=== PATIENT | male | born 1950 | race Caucasian/White ===

== ENCOUNTER 2023-08-23 17:53 | Emergency (ER) | payer MEDICARE, OTHER ==
[~2023-08-23] VITALS: Ht 177.8 cm; Wt 113.4 kg
--- NOTE | 2023-08-23 18:12 | ED Neurological Problem ---
General Stated Complaint: FALL; HEAD INJ Source: patient, family, RN/MD Exam Limitations: no limitations History of Present Illness Date Seen by Provider: Aug 23, 2023 Time Seen by Provider: 17:54 Initial Comments 72-year-old male with past medical history most notable for hypertension coming in as a referral from the walk-in clinic due to altered mental status. He has noticed some twitching of his lips for the past couple of days, this morning around 1 in the morning he got up, fell somewhere next to his bed, he is unsure why he fell. He woke up confused and generally weak. He does believe he hit his head. He has been spacing out most of the day at times. He denies being diabetic. He does not take any blood thinners. He denies pain anywhere other than a little bit in his shoulders from the fall, he has been using it without difficulty. He has been ambulating today. Allergies and Home Medications Allergies Coded Allergies: No Known Drug Allergies (Unverified , 08/23/23) Patient Home Medication List Home Medication List Reviewed: Yes Review of Systems Review of Systems Constitutional: No fever Eyes: No Symptoms Reported Ears, Nose, Mouth, Throat: no symptoms reported Respiratory: no symptoms reported Cardiovascular: syncope Gastrointestinal: no symptoms reported Genitourinary: no symptoms reported Musculoskeletal: see HPI Skin: no symptoms reported Psychiatric/Neurological: See HPI Endocrine: No Symptoms Reported Past Zfkjcww-Oheiae-Hhnpkv Hx Patient Social History Tobacco Use?: No Use of E-Cig and/or Vaping dev: No Substance use?: No Alcohol Use?: Yes Alcohol Frequency: Once in a while Past Medical History Surgeries: Yes Appendectomy Physical Exam Vital Signs Vital Signs - First Documented 08/23/23 17:55 Temp 36.9 Pulse 70 Resp 17 B/P (MAP) 152/65 (94) Pulse Ox 95 O2 Delivery Room Air Capillary Refill : Height, Weight, BMI Height: '" Weight: lbs. oz. kg; BMI Method: General Appearance: WD/WN, no apparent distress HEENT: PERRL/EOMI, normal ENT inspection, pharynx normal Neck: non-tender, full range of motion, supple, normal inspection Respiratory: chest non-tender, lungs clear, normal breath sounds, no respiratory distress, no accessory muscle use Cardiovascular: regular rate, rhythm, no edema Gastrointestinal: normal bowel sounds, non tender, soft; No distended, No guarding, No rebound Back: normal inspection, no CVA tenderness, no vertebral tenderness Extremities: normal range of motion, non-tender, normal inspection, no pedal edema, no calf tenderness, normal capillary refill Neurologic/Psychiatric: 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 tested, no motor/sensory deficits, alert, normal mood/affect, oriented x 3 Crainal Nerves: normal hearing, normal speech, PERRL, other (Normal visual ochoa and visual acuity) Coordination/Gait: normal finger to nose, normal gait Motor/Sensory: no motor deficit, no sensory deficit, no pronator drift Skin: normal color, warm/dry Stroke Onset of Symptoms Date of Onset of Symptoms: Aug 23, 2023 Time of Symptom Onset: 01:00 Onset of Symptoms: Yes NIH Stroke Scale Assessment Select: Initial Level of Consciousness: 0=Alert (0), Level of Consciousness- Questions: 0=Answers both month/age (0), LOC Commands: 0=Performs both tasks (0), Gaze: Normal (0), Visual Ochoa: 0=No visual loss (0), Facial Movement (Facial Paresis): 0=Normal symmetrical mnt (0), Motor Function-Arms Right: 0=No drift (0), Motor Function-Arms Left: 0=No drift (0), Motor Function-Legs Right: 0=No drift (0), Motor Function-Legs Left: 0=No drift (0), Limb Ataxia: 0=Absent (0), Sensory: 0=Normal:no loss (0), Best Language: 0=No aphasia (0), Dysarthria: 0=Normal (0), Extinction & Inattention: 0=No abnormality (0), Total: 0 Stroke Thrombolytic Exclusion Age 18 or Over: Yes Improving Symptoms: Yes TPA Contraindication: Yes IV - TPa Received IV - TPa Procedure Performed?: No Progress/Results/Core Measures Results/Orders Lab Results Laboratory Tests Test 08/23/23 18:05 08/23/23 18:37 Range/Units White Blood Count 13.8 H 4.3-11.0 10^3/uL Red Blood Count 4.77 4.30-5.52 10^6/uL Hemoglobin 15.5 13.3-17.7 g/dL Hematocrit 45 40-54 % Mean Corpuscular Volume 94 80-99 fL Mean Corpuscular Hemoglobin 33 25-34 pg Mean Corpuscular Hemoglobin Concent 34 32-36 g/dL Red Cell Distribution Width 12.2 10.0-14.5 % Platelet Count 198 130-400 10^3/uL Mean Platelet Volume 12.0 9.0-12.2 fL Immature Granulocyte % (Auto) 0 % Neutrophils (%) (Auto) 74 42-75 % Lymphocytes (%) (Auto) 16 12-44 % Monocytes (%) (Auto) 9 0-12 % Eosinophils (%) (Auto) 1 0-10 % Basophils (%) (Auto) 1 0-10 % Neutrophils # (Auto) 10.2 H 1.8-7.8 10^3/uL Lymphocytes # (Auto) 2.2 1.0-4.0 10^3/uL Monocytes # (Auto) 1.2 H 0.0-1.0 10^3/uL Eosinophils # (Auto) 0.1 0.0-0.3 10^3/uL Basophils # (Auto) 0.1 0.0-0.1 10^3/uL Immature Granulocyte # (Auto) 0.0 0.0-0.1 10^3/uL Prothrombin Time 12.9 12.2-14.7 SEC INR Comment 0.9 0.8-1.4 Activated Partial Thromboplast Time 21 L 24-35 SEC Urine Color YELLOW Urine Clarity CLEAR Urine pH 6.0 5-9 Urine Specific [place] 1.025 H 1.016-1.022 Urine Protein NEGATIVE NEGATIVE Urine Glucose (UA) NEGATIVE NEGATIVE Urine Ketones TRACE H NEGATIVE Urine Nitrite NEGATIVE NEGATIVE Urine Bilirubin NEGATIVE NEGATIVE Urine Urobilinogen 0.2 < = 1.0 MG/DL Urine Leukocyte Esterase NEGATIVE NEGATIVE Urine RBC (Auto) NEGATIVE NEGATIVE Urine RBC NONE /HPF Urine WBC RARE /HPF Urine Squamous Epithelial Cells 5-10 /HPF Urine Crystals NONE /LPF Urine Bacteria FEW H /HPF Urine Casts PRESENT /LPF Urine Hyaline Casts 0-2 H /LPF Urine Mucus LARGE H /LPF Urine Culture Indicated NO Sodium Level 140 135-145 MMOL/L Potassium Level 3.5 L 3.6-5.0 MMOL/L Chloride Level 103 98-107 MMOL/L Carbon Dioxide Level 24 21-32 MMOL/L Anion Gap 13 5-14 MMOL/L Blood Urea Nitrogen 31 H 7-18 MG/DL Creatinine 1.15 0.60-1.30 MG/DL Estimat Glomerular Filtration Rate 67 BUN/Creatinine Ratio 27 Glucose Level 123 H 70-105 MG/DL Calcium Level 9.3 8.5-10.1 MG/DL Corrected Calcium 9.4 8.5-10.1 MG/DL Magnesium Level 2.1 1.6-2.4 MG/DL Total Bilirubin 0.5 0.1-1.0 MG/DL Aspartate Amino Transf (AST/SGOT) 50 H 5-34 U/L Alanine Aminotransferase (ALT/SGPT) 26 0-55 U/L Alkaline Phosphatase 107 40-136 U/L Troponin I < 0.30 <0.30 NG/ML Total Protein 7.3 6.4-8.2 GM/DL Albumin 3.9 3.2-4.5 GM/DL Glucometer 124 H 70-110 MG/DL My Orders Orders - SURESH SMYTH MD Cbc And Automated Diff (08/23/23 17:59) Protime With Inr (08/23/23 17:59) Partial Thromboplastin Time (08/23/23 17:59) Comprehensive Metabolic Panel (08/23/23 17:59) Troponin I Fs (08/23/23 17:59) Ua Culture If Indicated (08/23/23 17:59) Chest 1 View Ap/Pa Only (08/23/23 17:59) Ekg Tracing (08/23/23 17:59) Accucheck Stat ONCE (08/23/23 17:59) Ed Iv/Invasive Line Start (08/23/23 17:59) Vital Signs Stroke Patient Q15M (08/23/23 17:59) Ct Head Wo-R/O Stroke (08/23/23 17:59) O2 (08/23/23 17:59) Intake & Output 06,14,22 (08/23/23 17:59) Monitor-Rhythm Ecg Trace Only (08/23/23 17:59) Dysphagia Screening Tool [id number] (08/23/23 17:59) Magnesium (08/23/23 18:08) Vital Signs/I&O 08/23/23 08/23/23 17:55 17:55 Temp 36.9 Pulse 70 Resp 17 B/P (MAP) 152/65 (94) Pulse Ox 95 O2 Delivery Room Air Room Air Progress Progress Note : Progress Note 72-year-old male with above history coming in due to altered low status after hitting his head early on in the morning. ABCs were intact, vital stable, GCS 15 on presentation. He is neuro intact at this time, states he has been confused all day and he medically cleared up just prior to arrival. He is hav ing difficulty with ambulation compared to his baseline. Glucose was around 120. An IV was placed and basic labs were obtained and were significant for normal hemoglobin, normal creatinine, negative troponin, urinalysis without evidence of infection. CT head ordered and I do not see any large subdural or subarachnoid hemorrhage. I discussed the case with the radiologist and they see a small intraparenchymal hemorrhage on the right parietal lobe. Given that the patient did fall this morning, I suspect this is traumatic in nature. I contacted [facility], I discussed the case with the ER doctor as well as the neurosurgeon. He was accepted for transfer to the emergency department for further evaluation by Dr. Sims. Initial ECG Impression Date: Aug 23, 2023 Initial ECG Impression Time: 18:28 Initial ECG Rate: 50 Initial ECG Rhythm: S.Juan Pablo Comment Wide QRS with a right bundle branch block, no STEMI Diagnostic Imaging Diagonstic Imaging: Xray (chest), CT (head) Comments [facility] [place], [place] NAME: BERTRAM COLES [facility] REC#: [id number] PT STATUS: REG ER : 1950 PHYSICIAN: SURESH SMYTH MD ADMIT DATE: 08/23/23/ER FS Draft Date of Exam:08/23/23 CT HEAD WO-R/O STROKE INDICATION: Acute mental status change, numbness in the facial region, confusion, generalized weakness. EXAMINATION: CT brain without contrast, 08/23/2023. All CT scans use one or more of the following dose optimizing techniques: automated exposure control, MA and/or KvP adjustment based on patient size and exam type or iterative reconstruction. FINDINGS: There is a focus of nonspecific hyperdensity in the anterior right parietal region, well-seen on axial image #24, suspicious for a small amount of intraparenchymal hemorrhage. Diffuse age-appropriate atrophy noted. Chronic ischemic disease is noted in a periventricular distribution. No acute infarct. No mass, mass effect or midline shift. No hydrocephalus. There is no acute osseous abnormality. Paranasal sinuses and mastoid air cells clear. IMPRESSION: Focus of hyperdensity in the right anterior parietal region suspicious for intraparenchymal hemorrhage, otherwise, chronic findings. Pertinent findings called to Dr. Saravia at the time of dictation. Dictated on workstation # [id number] Dict: 08/23/23 1838 Trans: 08/23/23 185 [facility] [id number] Interpreted by: ROMELIA SARAVIA MD Electronically signed by: [facility] [place] NAME: BERTRAM COLES [facility] REC#: [id number] PT STATUS: REG ER : 1950 PHYSICIAN: SURESH SMYTH MD ADMIT DATE: 08/23/23/ER FS Draft Date of Exam:08/23/23 CHEST 1 VIEW AP/PA ONLY INDICATION: Altered mental status, generalized weakness. EXAMINATION: Chest, 08/23/2023. FINDINGS: There is prominence of the heart. Pulmonary vasculature unremarkable. Bibasilar atelectasis versus infiltrates. No effusion. No pneumothorax. IMPRESSION: Possible early infiltrates or atelectasis at both lung bases. Dictated on workstation # [id number] Dict: 08/23/23 1849 Trans: 08/23/231854 [facility] [id number] Interpreted by: ROMELIA SARAVIA MD Electronically signed by: Departure Impression Primary Impression: Traumatic intraparenchymal hemorrhage Qualified Codes: S06.301A - Unspecified focal traumatic brain injury with loss of consciousness of 30 minutes or less, initial encounter Disposition: XFER SHT-TRM HOSP Condition: Stable Transfer Transfer Reason: Exceeds level of care (needs neurosurgery) Time Spoke to Accepting Phy: 19:00 Transfer Progress Notes Accepted to ER at [place] by Dr. Sims Transfer Facility: [facility] Method of Transfer: EMS Departure-Patient Inst. Referrals: MESHA GREEN MD (PCP) Primary Care Physician SURESH SMYTH MD Aug 23, 2023 18:12
[2023-08-23 18:19] LABS: BASOPHILS # (AUTO) 0.1 10^3/uL (0.0-0.1); BASOPHILS % (AUTO) 1 % (0-10); EOSINOPHILS # (AUTO) 0.1 10^3/uL (0.0-0.3); EOSINOPHILS % (AUTO) 1 % (0-10); HEMATOCRIT 45 % (40-54); HEMOGLOBIN 15.5 g/dL (13.3-17.7); LYMPHOCYTES # (AUTO) 2.2 10^3/uL (1.0-4.0); LYMPHOCYTES % (AUTO) 16 % (12-44); MEAN CORPUSCULAR HEMOGLOBIN 33 pg (25-34); MEAN CORPUSCULAR HGB CONC 34 g/dL (32-36); MEAN CORPUSCULAR VOLUME 94 fL (80-99); MONOCYTES # (AUTO) 1.2 10^3/uL (0.0-1.0); MONOCYTES % (AUTO) 9 % (0-12); NEUTROPHILS # (AUTO) 10.2 10^3/uL (1.8-7.8); NEUTROPHILS % (AUTO) 74 % (42-75); PLATELET COUNT 198 10^3/uL (130-400); WHITE BLOOD COUNT 13.8 10^3/uL (4.3-11.0)
[2023-08-23 18:20] LABS: BILIRUBIN,URINE NEGATIVE (NEGATIVE); CLARITY,URINE CLEAR; COLOR,URINE YELLOW; GLUCOSE, URINE (UA) NEGATIVE (NEGATIVE); KETONES,URINE TRACE (NEGATIVE); LEUKOCYTE ESTERASE ,URINE NEGATIVE (NEGATIVE); NITRITE,URINE NEGATIVE (NEGATIVE); PROTEIN,URINE NEGATIVE (NEGATIVE)
[2023-08-23 18:24] LABS: BACTERIA,URINE FEW /HPF; WBC,URINE RARE /HPF
[2023-08-23 18:25] LABS: HYALINE CASTS, URINE 0-2 /LPF
[2023-08-23 18:35] LABS: PROTHROMBIN TIME PATIENT 12.9 SEC (12.2-14.7)
[2023-08-23 18:36] LABS: BILIRUBIN,TOTAL 0.5 MG/DL (0.1-1.0); CALCIUM 9.3 MG/DL (8.5-10.1); CARBON DIOXIDE 24 MMOL/L (21-32); CHLORIDE 103 MMOL/L (98-107); INR 0.9 (0.8-1.4); MAGNESIUM 2.1 MG/DL (1.6-2.4); POTASSIUM 3.5 MMOL/L (3.6-5.0); SODIUM 140 MMOL/L (135-145); TOTAL PROTEIN 7.3 GM/DL (6.4-8.2)
[2023-08-23 18:38] LABS: ALANINE AMINOTRANSFERASE 26 U/L (0-55); ALBUMIN 3.9 GM/DL (3.2-4.5); ALKALINE PHOSPHATASE 107 U/L (40-136); BUN/CREATININE RATIO 27; CREATININE SERUM 1.15 MG/DL (0.60-1.30); GFR ESTIMATED 67; GLUCOSE 123 MG/DL (70-105)
--- NOTE | 2023-08-23 18:55 | Diagnostic Imaging Report ---
INDICATION: Acute mental status change, numbness in the facial region, confusion, generalized weakness. EXAMINATION: CT brain without contrast, 08/23/2023. All CT scans use one or more of the following dose optimizing techniques: automated exposure control, MA and/or KvP adjustment based on patient size and exam type or iterative reconstruction. FINDINGS: There is a focus of nonspecific hyperdensity in the anterior right parietal region, well-seen on axial image #24, suspicious for a small amount of intraparenchymal hemorrhage. Diffuse age-appropriate atrophy noted. Chronic ischemic disease is noted in a periventricular distribution. No acute infarct. No mass, mass effect or midline shift. No hydrocephalus. There is no acute osseous abnormality. Paranasal sinuses and mastoid air cells clear. IMPRESSION: Focus of hyperdensity in the right anterior parietal region suspicious for intraparenchymal hemorrhage, otherwise, chronic findings. Pertinent findings called to Dr. Blake by Dr. Saravia at the time of dictation. Dictated by: Dictated on workstation # [id number]
--- NOTE | 2023-08-23 18:55 | Diagnostic Imaging Report ---
INDICATION: Altered mental status, generalized weakness. EXAMINATION: Chest, 08/23/2023. FINDINGS: There is prominence of the heart. Pulmonary vasculature unremarkable. Bibasilar atelectasis versus infiltrates. No effusion. No pneumothorax. IMPRESSION: Possible early infiltrates or atelectasis at both lung bases. Dictated by: Dictated on workstation # [id number]
[2023-08-23 19:22] VITALS: BP 152/59
== END 2023-08-23 19:26 | disposition short-term general hospital (02) ==
LOC: ER FS 17:54
DX: S06.2XAA Diffuse traumatic brain injury with loss of consciousness status unknown, initial encounter (principal); I45.10 Unspecified right bundle-branch block; W19.XXXA Unspecified fall, initial encounter; W22.8XXA Striking against or struck by other objects, initial encounter
CPT/HCPCS: 36415; 70450; 71045; 80053; 81000; 82947; 83735; 84484; 85025; 85610; 85730; 93005; 93041